=== PATIENT | male | born 1970 | race Caucasian/White ===

== ENCOUNTER 2019-08-10 08:11 | Observation (INO) ==
[2019-08-10] MEDS ORDERED: Isovue-370 500 ML BOTTLE IVP ONE (08:22)
[2019-08-10 08:31] LABS: Hematocrit 46.9 % (37.5-50.1); Mean Corpuscular HGB Conc 33.7 g/dL (31.6-35.5); Mean Corpuscular Hemoglobin 32.1 pg (28.0-33.3); Mean Corpuscular Volume 95.3 fL (83.0-100.0); Mean Platelet Volume 9.5 fL (9.4-12.4); Platelet Count 272 K/mcL (140-400); Red Blood Count 4.92 M/mcL (4.19-5.50); Red Cell Distribution Width 11.9 % (11.5-14.5); White Blood Count 7.6 K/mcL (4.3-11.1)
[2019-08-10 08:33] LABS: Hemoglobin 15.8 g/dL (12.9-16.9)
[2019-08-10 08:38] LABS: Prothrombin Time 10.8 Seconds (9.4-12.1)
[2019-08-10 08:41] LABS: Activated Partial Thrombo Time 28.8 Seconds (26.0-36.0)
[2019-08-10 08:56] LABS: BUN/Creatinine Ratio 14 (6-26); Blood Urea Nitrogen 14 mg/dL (6-20); Calcium 9.9 mg/dL (8.6-10.3); Carbon Dioxide 25 mEq/L (23-29); Chloride 104 mEq/L (98-107); Glucose 157 mg/dL (70-105); Osmolality,Calculated 290 (280-300); Potassium 3.9 mEq/L (3.5-5.1); Sodium 138 mEq/L (136-145); eGFR For African Americans > 60 (> 60); eGFR For Non-African Americans > 60 (> 60)
[2019-08-10] MEDS ORDERED: Naloxone 0.4 MG/ML INJ IVP PRN (09:50)
[2019-08-10] MEDS: Insulin LISPRO 300 UNITS/3 ML VIAL SQ SCH ×2 (11:28→17:08)
[2019-08-10] MEDS ORDERED: *HR* Heparin 5,000 UNIT/ML VIAL SQ SCH (14:00)
[2019-08-10] MEDS ORDERED: *HR* Rivaroxaban 10 MG TABLET PO SCH (17:00)
[2019-08-11] MEDS: Insulin LISPRO 300 UNITS/3 ML VIAL SQ SCH ×3 (03:15→12:17)
[2019-08-11] MEDS ORDERED: *HR* Promethazine 25 MG/ML VIAL IVP ONE (05:05)
[2019-08-11 06:55] LABS: Basophils % 0.5 %; Eosinophils # 0.1 K/mcL (0.0-0.6); Eosinophils % 1.5 %; Hematocrit 43.7 % (37.5-50.1); Hemoglobin 14.6 g/dL (12.9-16.9); Immature Granulocytes % 0.2 % (0-4); Lymphocytes # 1.5 K/mcL (0.6-4.6); Mean Corpuscular HGB Conc 33.4 g/dL (31.6-35.5); Mean Corpuscular Hemoglobin 31.9 pg (28.0-33.3); Mean Corpuscular Volume 95.6 fL (83.0-100.0); Mean Platelet Volume 10.1 fL (9.4-12.4); Monocytes # 0.6 K/mcL (0.0-1.3); Monocytes % 10.1 %; Neutrophils # 3.7 K/mcL (1.6-8.9); Platelet Count 261 K/mcL (140-400); Red Blood Count 4.57 M/mcL (4.19-5.50); Red Cell Distribution Width 11.9 % (11.5-14.5); Segmented Neutrophils % 62.7 %
[2019-08-11 07:15] LABS: BUN/Creatinine Ratio 12 (6-26); Blood Urea Nitrogen 11 mg/dL (6-20); Calcium 9.4 mg/dL (8.6-10.3); Carbon Dioxide 26 mEq/L (23-29); Chloride 104 mEq/L (98-107); Glucose 140 mg/dL (70-105); Osmolality,Calculated 288 (280-300); Potassium 3.9 mEq/L (3.5-5.1); Sodium 138 mEq/L (136-145); eGFR For African Americans > 60 (> 60); eGFR For Non-African Americans > 60 (> 60)
[2019-08-11] MEDS ORDERED: amLODIPine 5 MG TABLET PO SCH (09:00)
[2019-08-11] MEDS ORDERED: Aspirin 81 MG TAB.CHEW PO SCH (09:00)
[2019-08-11] MEDS ORDERED: lisinopriL 20 MG TABLET PO SCH (09:00)
[2019-08-11 11:43] VITALS: BP 144/89
[2019-08-13 01:56] LABS: APTT (LE Anticoag) 34 sec (32-48); Diluted Russell Viper Venom 31 sec (33-44); PT (LE-Anticoag) 12.6 sec (12.0-15.5)
[2019-08-14 18:31] LABS: FACV Specimen WHOLE BLOOD
[2019-08-15 07:00] LABS: Fac V Leiden R506Q Mut Result NEGATIVE
== END 2019-08-11 16:10 | disposition home or self-care (01) ==
LOC: 3BNU 08:11 → EMEROOARM 08:11 → 3BNU 11:05
PROVIDERS: ADMIT Student in an Organized Health Care Education/Training Program; ATTEND Student in an Organized Health Care Education/Training Program